=== PATIENT | male | born 1985 | race Caucasian/White ===

== ENCOUNTER 2024-11-08 09:44 | Outpatient (CLI) | payer OTHER, SELFPAY ==
--- NOTE | ~2024-11-08 | XR_ITS ---
Supine and upright views of the abdomen Clinical history: Kidney stones Findings: Bowel gas pattern is nonspecific. No evidence for obstruction or free air. Suspected 3 mm l eft kidney stone present. 5 mm calcification projects left of the L3 vertebral body, which could refl ect mid left ureteral stone. Suspected tiny right renal stone. Osseous structures are intact. Impression: Possible 5 mm mid left ureteral stone. Suspected small bilateral renal stones, as above. Reviewed, dictated and finalized at location . Impression: Possible 5 mm mid left ureteral stone. Suspected small bilateral renal stones, as above.
== END 2024-11-08 09:45 | disposition home or self-care (01) ==
PROVIDERS: PCP Nurse Practitioner; Visit Provider Urology
DX: N20.0 Calculus of kidney (principal)
CPT/HCPCS: 74018

== ENCOUNTER 2024-11-09 12:46 | Outpatient (CLI) | payer OTHER, SELFPAY ==
--- OUTSIDE RECORDS SUMMARY | 2024-11-09 12:49 | XMS_ITS | Clinical Summary ---
Author Organization [facility] Address [address] [place] [address] Care Team Providers Care Land Management Supervisor Name Role Phone Shirley Rivera DO Primary Care Provider [phone] Source Comments [facility],non-owned Affiliates and Associated Physician Practices is amultiple site organization consisting of ambulatory clinics and hospital sitesin [place], [place], [place] and [place]. This disclosure is being madepursuant to the Care Everywhere program and may not contain all information available regarding this patient. Last updated 18.[facility] [employer] Allergies No known active allergies Immunizations Immunization Administration Dates Next Due INFLUENZA VACCINE, QUADR. (F LUZONE; FLULAVAL; FLUARIX; AFLURIA QUADRIVALENT; 6MO+), 0.5 ML (IIV4) 04/27/2018 Social History Tobacco Use Types Packs/Day Years Used Date Smoking Tobacco: Never Assessed Sex and Gender Information Value Date Recorded Sex Assigned at Not on file Legal Sex Male 2:02 PM CDT Gender Identity Not on file Sexual Orientation Not on file Plan of Treatment Health Maintenance Due Date Last Done Comments LIPID TESTING 1984 HIV SCREENING 02/05/1999 HEPATITIS C SCREENING 02/01/2002 DTAP/TDAP/TD VACCINES (1 - Tdap) 02/05/2003 HEPATITIS B VACCINE (1 of 3 - 19+ 3-dose series) 02/05/2003 COVID-19 VACCINE ( - 2023-2 5 season) 2024 DEPRESSION SCREENING 07/03/2024 INFLUENZA VACCINE (Season Ended) 2025 04/27/2018, 05/22/2017, 05/29/2012 ZOSTER VACCINE (1 of 2) 02/05/2034 HIB VACCINE Aged Out No longer eligi ble based on patient's age to complete this topic HPV VACCINE Aged Out No longer eligi ble based on patient's age to complete this topic MENINGOCOCCAL (Group B) VACCINE SHARED DECISION-MAKING Aged Out No longer eligible based on patient's age to complete this topic MENINGOCOCCAL GROUPS A/C/Y/W VACCINE Aged Out No longer eligible b ased on patient's age to complete this topic PNEUMOCOCCAL VACCINE Aged Out No long er eligible based on patient's age to complete this topic Insurance [employer] Care Teams Land Management Supervisor Relationship Specialty Start Date End Date Shirley Rivera DO PCP - General Family Medicine 04/28/18
--- OUTSIDE RECORDS SUMMARY | 2024-11-09 12:49 | XMS_ITS | Encounter Summary ---
Author Organization [facility] Address [address] [place] [address] Care Team Providers Care Accounts Receivable Bookkeeper Name Role Phone Shirley Rivera DO Primary Care Provider [phone] Encounter Details Date Type Department Care Team (Late st Contact Info) Description 07/18/2024 Lab Requisition [facility] - DermPath Lab [address] [place] [id number] Brenna Ignacio DO [address] [place] [address] Social History Tobacco Use Types Packs/Day Years Used Date Smoking Tobacco: Never Assessed Sex and Gender Information Value Date Recorded Sex Assigned at Not on file Legal Sex Male 2:02 PM CDT Gender Identity Not on file Sexual Orientation Not on file documented as of this encounter Plan of Treatment Not on file documented as of this encounter Procedures Procedure Name Priority Date/Time Associated Diagnosis Comments DERMATOPATHOLOGY Routine 07/18/2024 8:35 AM SWIMMING POOL MAINTENANCE documented in this encounter Results * DERMATOPATHOLOGY (07/18/2024 8:35 AM SWIMMING POOL MAINTENANCE) Case Report Dermatopathology Report Case: [id number] Authorizing Provider: Brenna Ignacio DO Collected: 07/18/2024 08:35 AM Ordering Location: [facility] - Received: 07/18/2024 01:43 PM DermPath Lab Pathologist: Jamila Sigala MD Specimen: Skin, mid upper back 1:21 PM SWIMMING [employer]OL MAINTENANCE DERMATOPATHOLOGY LABORATORY Final Diagnosis Specimen A. SKIN, mid upper back: DERMAL SCAR RESIDUAL MELANOCYTIC PROLIFERATION NOT IDENTIFIED (L90.5) 1:21 PM SWIMMING POOL MAINTENANCE DERMATOPATHOLOGY LABORATORY Clinical History Bx proven NIKKI Proliferation Check margins/prior biopsy 1:21 PM [facility] DERMATOPATHOLOGY LABORATORY Gross Description Specimen A: Received is one formalin filled container labeled with the patient's name and designated mid upper back. The specimen consists of a non-oriented ellipse of skin measuring 29p60v7 mm. The epidermal surface is unremarkable. The margin is inked green. The 12 o'clock and 6 o'clock tips are submitted in cassette 1. The remainder of the ellipse is serially sectioned and submitted in cassette 2-3. Jar 0. 1:21 PM [facility] DERMATOPATHOLOGY LABORATORY Microscopic Description Specimen A. SKIN, mid upper back: There are fibroblasts and collagen bundles oriented parallel to the skin surface. There are elongated blood vessels, some of which are oriented perpendicular to the skin surface. No residual melanocytic proliferation is identified. 1:21 PM [facility] DERMATOPATHOLOGY LABORATORY Disclaimer An external and internal positive and negative controls are appropriate for the histochemical, immunohistochemical and immunofluorescence stain(s) in this case (if any), except where stated explicitly. The performance characteristics of the stain(s) cited in this report were developed and its performance characteristic determined by the Dermatopathology Laboratory at [facility], directed by Dr. Racheal Leiva. These tests need not be, and therefore are not, approved by the [place] Food and Drug Administration. The tests are used for clinical purposes. Billing Codes Specimen Charges Stain Charges 79185 1 1:21 PM [facility] DERMATOPATHOLOGY LABORATORY Embedded Images 1:21 PM [facility] DERMATOPATHOLOGY LABORATORY Pathology/Cytolo gy TISSUE SPECIMEN FROM SKIN / Unknown 07/18/2024 8:35 AM SWIMMING POOL MAINTENANCE 07/18/2024 1:43 PM [facility] us Brenna Ignacio DO LAB - PATHOLOGY/CYTOLOGY ORDERABLES Final Result DERMATOPATHOLOGY LABORATORY [facility] - Department of Dermatology [address], [address] [phone] documented in this encounter Visit Diagnoses Not on filedocumented in this encounter Care Teams Accounts Receivable Bookkeeper Relationship Specialty Start Date End Date Shirley Rivera DO PCP - General Family Medicine 04/28/18 documented as of this encounter
--- OUTSIDE RECORDS SUMMARY | 2024-11-09 12:49 | XMS_ITS | Clinical Summary ---
Author Organization [facility] Address [address] [place] [address] Phone Care Team Providers Care Gas Leak Inspector Helper Name Role Phone ChesterCelia APRN, METHODS ANALYST Primary Care Provider Allergies No known active allergies Medications HYDROcodone-sandeep taminophen (NORCO) 5-325 MG Tablet Take 1-2 Tabs by mouth every 4 hours as needed for Moderate or more severe pain. 10 Tab 03/05/2018 Active ibuprofen (MOTRIN) 800 MG Tablet Take 1 Tab by mouth every 8 hours. 30 Tab 03/05/2018 Active Social History Tobacco Use Types Packs/Day Years Used Date Smoking Tobacco: Never Smokeless Tobacco: Never Alcohol Use Standard Drinks/Week Comments No 0 (1 standard drink = 0.6 oz pur e alcohol) Sex and Gender Information Value Date Recorded Sex Assigned at Not on file Legal Sex Male 10:52 PM CDT Gender Identity Not on file Sexual Orientation Not on file Last Filed Vital Signs Vital Sign Reading Time Taken Comments Blood Pressure 144/87 03/05/2018 10:05 AM CDT Pulse 66 03/05/2018 10:02 AM CDT Temperature 35.8 C (96.5 F) 03/05/2018 10:02 AM CDT Respiratory Rate 16 03/05/2018 10:02 AM CDT Oxygen Saturation 97% 03/05/2018 10:02 AM CDT Inhaled Oxygen Concentration - - Weight 108.9 kg (240 lb) 03/05/2018 10:02 AM CDT Height 175.3 cm (5' 9 ) 03/05/2018 10:02 AM CDT Body Mass Index 35.44 03/05/2018 10:02 AM CDT Plan of Treatment Health Maintenance Due Date Last Done Comments Hepatitis C Virus (HCV) Screening 1985 TdaP Immunization 1984 Hepatitis B Immunization (1 of 3 - 19+ 3-dose series) 02/05/2003 Influenza Immunization (#1) 2024 SARS-COV-2 Immunization (2023- season) 2024 Respiratory Syncytial Virus (RSV) Immunization (Adult) (1 - 1-dose 75+ series) 02/05/2059 Meningococcal Immunization (ACWY) Aged Out No longer eligible based on patient's age to complete this topic Pneumococcal Immunization Combined Aged Out No longer eligible based on patient's age to complete this topic Rotavirus Immunization Aged Out No lo nger eligible based on patient's age to complete this topic Insurance Care Teams Gas Leak Inspector Helper Relationship Specialty Start Date End Date Celia Chester, LONG FILLER CIGAR ROLLER MACHINE, METHODS ANALYST [address] [place] [address] [place] [address] PCP - General Advanced Practice Nurse 04/06/22
--- OUTSIDE RECORDS SUMMARY | 2024-11-09 12:49 | XMS_ITS | Referral Summary ---
Author Organization [facility] Medical Office Building B Address [address] [place] [address] Care Team Providers Care Social Media Editor Name Role Phone Teri Escobar NP Primary Care Provider [phone] Encounters Date Type Department Care Team Description 11/07/2024 3:57 AM CDT - 11/07/2024 6:51 AM CDT Emergency [facility] Emergency Department [address] [place] [address] Ac Moss MD Kidney stone on left side (Primary Dx) Discharge Disposition: Discharge to home or self care 11/06/2024 4:24 PM CDT - 11/06/2024 7:24 PM CDT Emergency [facility] Emergency Department [address] [place] [address] Left nephrolithiasis (Primary Dx) Discharge Disposition: Discharge to home or self care 10/09/2024 Telephone [facility] [place] [address] [place] [address] Teri Escobar NP from Last 3 Months Allergies No known active allergies Medications ergocalciferol (VITAMIN D) 50,000 unit capsuleIndications :Vitamin D deficiency Take 1 capsule (50,000 Units total) by mouth once a week Active DULoxetine DR 40 mg capsule,delayed release(DR/EC)Chelita cations:major depressive disorder Take 40 mg by mouth daily 30 capsule 11 06/20/[address] (CYMBALTA) 20 mg capsuleIndications :major depressive disorder Take 1 capsule (20 mg total) by mouth nightly 30 capsule 07/26/19 25 Active ondansetron ODT (ZOFRAN-ODT) 4 mg disintegrating tablet Take 1 tablet (4 mg total) by mouth every 8 (eight) hours as needed for nausea or vomiting 20 tablet 11/07/19 25 Active tamsulosin (FLOMAX) 0.4 mg extended release capsule Take 1 capsule (0.4 mg total) by mouth daily for 5 days 5 capsule 11/07/19 25 025 Active HYDROcodone-acetam inophen (NORCO) 5-325 mg per tabletIndications: Pain Take 2 tablets by mouth every 6 (six) hours as needed for pain for up to 2 days 16 tablet 11/08/19 25 025 Active HYDROcodone-acetam inophen (NORCO) 5-325 mg per tabletIndications: Pain Take 1 tablet by mouth every 6 (six) hours as needed for pain 20 tablet 11/07/19 25 025 Discontinued Active Problems Problem Noted Date Diagnosed Date Moderate episode of recurrent major depressive d isorder 06/20/2024 Assessment & Plan (07/26/2024 8:42 AM NUMERICAL CONTROL PROGRAMMER): Moods have improved but not controlled yet. Will add 20 mg Duloxetine at night and if works will try 30 mg BID since just filled 40 mg. Will continue to monitor. Assessment & Plan (06/20/2024 10:20 AM NUMERICAL CONTROL PROGRAMMER): PHQ-9 is 10 today. Will start on Duloxetine. Will re-evaluate in 3 months. Will continue to monitor. Hypogonadism in male 04/24/2024 Assessment & Plan (04/24/2024 3:58 PM CDT): Doing testosterone injections from [facility] Encounter for medical examination to establish c are 04/21/2023 Assessment & Plan (04/21/2023 3:31 PM CDT): Healthy 38-year-old male presents to establish care with new PCP Patient recently started counseling. Patient is not on any medications He would like to have his testosterone checked Follow up 6 months Fatigue 04/21/2023 Assessment & Plan (04/21/2023 3:30 PM CDT): Testosterone level ordered We will follow with results Class 1 obesity due to exces s calories without serious comorbidity with body mass index (BMI) of 34.0 to 34.9 in adult 08[birth year]/1999 Assessment & Plan (07/26/2024 8:39 AM NUMERICAL CONTROL PROGRAMMER): Encouraged heart healthy diet and lifestyle. Advised 150 min/week of aerobic exercise. Assessment & Plan (06/20/2024 10:04 AM NUMERICAL CONTROL PROGRAMMER): Encouraged heart healthy diet and lifestyle. Advised 150 min/week of aerobic exercise. Assessment & Plan (10/22/2018 3:59 PM CDT): Obesity is unchanged. Discussed the patient's BMI. The BMI is above average; BMI management plan is completed. General weight loss/lifestyle modification strategies discussed (elicit support from others; identify saboteurs; non-food rewards, etc). Diet= low-carb Limit white bread, rice, pasta, potatoes, juice, energy drinks, coffee creamers with sugar, sugar sodas, candy, cake, cookies, ice cream. Be more careful with starchy vegetables like corn, carrots, and fruits. Stay away from processed foods, fast foods, fried foods. The cornerstone of this diet is lean grilled meats, green salads or cooked greens, fat-free milk, cottage cheese, nuts like xbqhixv-[id number], protein bars with 10-15 g of protein and 20-30 g of carbohydrate. Choose whole grain breads and pastas, brown rice, sweet potatoes, read onions--these whole grains absorb more slowly thus blood sugar does not surge so high so quickly. Avoid drinking juice, eat a piece of fruit instead. Resolved Problems Problem Noted Date Diagnosed Date Resolved Date Kidney stone 04/06/2022 04/24/2024 Assessment & Plan (04/06/2022 1:25 PM CDT): UA positive for blood in urine. Negative for UTI. Suspicion for Kidney stone and with previous history of stones, will start of Flomax and Tramadol for pain. Encouraged to increase water intake. If symptoms worsen or persist, then CT can be ordered. Acute pain of right knee 10/22/2018 Assessment & Plan (10/22/2018 4:00 PM CDT): Rest, ice, compression, and elevation. Take ibuprofen as needed for pain. Referral to Orthopedics Immunizations Immunization Administration Dates Next Due DTP 07/21/2016 Influenza, Quadrivalent, Spl it, Preservative Free, Intramuscular 04/21/2023,04/26/2019,04/27/2018 Influenza, Trivalent, Preser vative Free, Intramuscular 04/24/2024 Influenza, Trivalent, Split, Preservative Free, Intradermal 05/29/2012 Influenza, Unspecified 04/06/2022(Deferr ed: Patient Refused),04/02/2022(Deferred: Patient Refused),04/02/2021(Deferred: Patient Refused),05/22/2017 TD Preservative Free 12/01/2008 Social History Tobacco Use Types Packs/Day Years Used Date Smoking Tobacco: Never Smokeless Tobacco: Never Tobacco Cessation:Counseling Given: Not Answered Alcohol Use Standard Drinks/Week Comments Yes 0 (1 standard drink = 0.6 oz pur e alcohol) [facility] [employer] Answer Date Recorded In the past 12 months has [facility] [employer], oil, or water [employer] threatened to shut off services in your home? No 04/21/2023 Humiliation, Afraid, Rape, and Kick questionnair e Answer Date Recorded Within the last year, have y ou been afraid of your partner or ex-partner? No 04/21/2023 Within the last year, have y ou been humiliated or emotionally abused in other ways by your partner or ex-partner? No Within the last year, have y ou been kicked, hit, slapped, or otherwise physically hurt by your partner or ex-partner? No 04/21/2023 Within the last year, have y ou been raped or forced to have any kind of sexual activity by your partner or ex-partner? No 04/21/2023 Social Connection and Isolat ion Panel [NHANES] Answer Date Recorded In a typical week, how many times do you talk on the phone with family, friends, or neighbors? More than three times a week 04/21/2023 How often do you get togethe r with friends or relatives? Once a week 04/21/2023 How often do you attend chur ch or sikhism services? Never 04/21/2023 Do you belong to any clubs o r organizations such as denominational groups, unions, fraternal or athletic groups, or school groups? Yes 04/21/2023 How often do you attend meet ings of the clubs or organizations you belong to? More than 4 times per year 04/21/2023 Are you , , di vorced, , never , or living with a partner? 04/21/2023 AUDIT-C Answer Date Recorded Q1: How often do you have a drink containing alc ohol? Monthly or less 04/21/2023 Q2: How many drinks containi ng alcohol do you have on a typical day when you are drinking? 3 or 4 04/21/2023 Q3: How often do you have si x or more drinks on one occasion? Less than monthly 04/21/2023 Overall Financial Resource Strain (CARDIA) Answe r Date Recorded How hard is it for you to pa y for the very basics like food, housing, medical care, and heating? Not hard at all 04/21/2023 PHQ-2 Answer Date Recorded PHQ-2 Total Score (If total score is 3 or more points, staff should administer the PHQ-9) 1 07/26/2024 [facility] - Occupational Stress Questionnaire Answer Date Recorded Do you feel stress - tense, restless, nervous, or anxious, or unable to sleep at night because your mind is troubled all the time - these days? Rather much 04/21/2023 Exercise Vital Sign Answer Date Recorde d On average, how many days pe r week do you engage in moderate to strenuous exercise (like a brisk walk)? 2 days 04/21/2023 On average, how many minutes do you engage in exercise at this level? 60 min 04/21/2023 Hunger Vital Sign Answer Date Recorded Within the past 12 months, y ou worried that your food would run out before you got the money to buy more. Never true 04/21/20 Within the past 12 months, t he food you bought just didn't last and you didn't have money to get more. Never true 04/21/2023 PRAPARE - Transportation Answer Date Re corded In the past 12 months, has l ack of transportation kept you from medical appointments or from getting medications? No 04/03 In the past 12 months, has l ack of transportation kept you from meetings, work, or from getting things needed for daily living? No 04/21/2023 Housing Stability Vital Sign Answer Branden e Recorded In the last 12 months, was t here a time when you were not able to pay the mortgage or rent on time? No 04/21/2023 In the last 12 months, how many places have you lived? 1 04/21/2023 In the last 12 months, was t here a time when you did not have a steady place to sleep or slept in a halfway (including now)? No 04/21/2023 PHQ-9 Answer Date Recorded PHQ-9 Total Score 10 06/20/2024 Personal Safety Answer Date Recorded Have you ever been in or are you currently in a harmful physical or emotional relationship or is someone making you feel afraid or unsafe? Denies 11/07/2024 Sex and Gender Information Value Date Recorded Sex Assigned at Not on file Legal Sex Male 11:59 PM NUMERICAL CONTROL PROGRAMMER Gender Identity Not on file Sexual Orientation Not on file Last Filed Vital Signs Vital Sign Reading Time Taken Comments Blood Pressure 156/96 11/07/2024 3:50 AM CDT Pulse 72 11/07/2024 3:50 AM CDT Temperature 36.8 C (98.2 F) 11/07/2024 3:50 AM CDT Respiratory Rate 16 11/07/2024 3:50 AM CDT Oxygen Saturation 100% 11/07/2024 3:50 AM CDT Inhaled Oxygen Concentration - - Weight 102.1 kg (225 lb) 11/07/2024 3:50 AM CDT Height 175.3 cm (5' 9 ) 11/07/2024 3:50 AM CDT Body Mass Index 33.23 11/07/2024 3:50 AM CDT Plan of Treatment Not on file Procedures Procedure Name Priority Date/Time Associated Diagnosis Comments CT ABDOMEN PELVIS WO CONTRAST ED 11/06/2024 4:37 PM CDT URINALYSIS, MICROSCOPIC ONLY STAT 11/06/2024 2:22 PM CDT URINALYSIS AND REFLEX TO MICROSCOPIC AND CULTURE STAT 11/06/2024 2:22 PM CDT EGFR STAT 11/06/2024 1:25 PM CDT DIFFERENTIAL AUTO STAT 11/06/2024 1:2 5 PM CDT LIPASE STAT 11/06/2024 1:25 PM CDT COMPREHENSIVE METABOLIC PANEL STAT 11/06/2024 1:25 PM CDT CBC WITH AUTO DIFFERENTIAL STAT 11/06/2024 1:25 PM CDT HEPATITIS PANEL, ACUTE STAT 7 9:22 PM CDT from Last 3 Months or Most Recently Relevant to Health Maintenance Results * CT Abdomen Pelvis WO Contrast (11/06/2024 4:37 PM CDT) Anatomical Region Laterality Modality Body N/A Computed Tomogra phy 11/06/2024 4:56 PM CDT Narrative 11/06/2024 5:10 PM CDT EXAM DESCRIPTION: CT ABDOMEN PELVIS WO CONTRAST REASON FOR STUDY: Abdominal/flank pain, stone suspected L sided flank pain x 2 days. Hx of kidney stones TECHNIQUE: CT scan of the abdomen and pelvis performed without intravenous and without oral contrast using helical scanning technique. Reconstructed coronal and sagittal MPR images reviewed. All images stored on PACS. Automated exposure control was used as a dose optimization technique for this examination. COMPARISON: None FINDINGS: The sensitivity for detection of visceral lesions is diminished without the use of intravenous contrast. LOWER CHEST: No significant pulmonary abnormalities. No effusion. LIVER: Normal size. No identified cystic or solid masses. GALLBLADDER: No stones identified. No wall thickening or inflammatory changes. BILE DUCTS: No intrahepatic or extrahepatic ductal dilatation. SPLEEN: Mildly enlarged measuring 13.1 cm. PANCREAS: No identified cystic or solid masses. No significant calcifications. No adjacent inflammation or peripancreatic fluid collections. Pancreatic duct not dilated. ADRENALS: Normal. KIDNEYS/URINARY TRACT: There is fukx-rp-thmybyiv left-sided hydronephrosis and hydroureter caused by 6 mm obstructing calculus in the mid ureter. There are multiple sub 5 mm nonobstructing intrarenal calculi bilaterally. Urinary bladder is unremarkable. GI: Stomach is unremarkable on CT. No dilated or thick-walled loops of bowel appreciated. No sign of appendicitis. PERITONEUM: No ascites or free air. RETROPERITONEUM: No mass or adenopathy. REPRODUCTIVE: Enlarged prostate VASCULATURE: No abdominal aortic aneurysm. MUSCULOSKELETAL: No significant abnormality. OTHER: No other abnormality. IMPRESSION: Dewd-kd-andyazxe left-sided hydronephrosis and hydroureter caused by a 6 mm obstructing calculus in the mid ureter. Multiple sub 5 mm nonobstructing intrarenal calculi bilaterally. Mild splenomegaly. Enlarged prostate. THIS IS AN ELECTRONICALLY VERIFIED FINAL REPORT 11/06/2024 5:10 PM - Electronically signed by Odell Ca M.D. AM: AM Report ID: [id number] Reading Location: [id number] Procedure Note Odell Ca MD - 11/06/2024 EXAM DESCRIPTION: CT ABDOMEN PELVIS WO CONTRAST REASON FOR STUDY: Abdominal/flank pain, stone suspected L sided flank pain x 2 days. Hx of kidney stones TECHNIQUE: CT scan of the abdomen and pelvis performed without intravenousand without oral contrast using helical scanning technique. Reconstructed coronal and sagittal MPR images reviewed. All images stored on PACS.Automated exposure control was used as a dose optimization technique for this examination. COMPARISON: None FINDINGS: The sensitivity for detection of visceral lesions is diminished withoutthe use of intravenous contrast. LOWER CHEST: No significant pulmonary abnormalities. No effusion. LIVER: Normal size. No identified cystic or solid masses. GALLBLADDER: No stones identified. No wall thickening or inflammatory changes. BILE DUCTS: No intrahepatic or extrahepatic ductal dilatation. SPLEEN: Mildly enlarged measuring 13.1 cm. PANCREAS: No identified cystic or solid masses. No significant calcifications. No adjacent inflammation or peripancreatic fluidcollections. Pancreatic duct not dilated. ADRENALS: Normal. KIDNEYS/URINARY TRACT: There is pzpj-wo-cnfcsben left-sided hydronephrosisand hydroureter caused by 6 mm obstructing calculus in the mid ureter. Thereare multiple sub 5 mm nonobstructing intrarenal calculi bilaterally. Urinary bladder is unremarkable. GI: Stomach is unremarkable on CT. No dilated or thick-walled loops of bowel appreciated. No sign of appendicitis. PERITONEUM: No ascites or free air. RETROPERITONEUM: No mass or adenopathy. REPRODUCTIVE: Enlarged prostate VASCULATURE: No abdominal aortic aneurysm. MUSCULOSKELETAL: No significant abnormality. OTHER: No other abnormality. IMPRESSION: Ofts-on-uxxjtnab left-sided hydronephrosis and hydroureter caused by a 6mm obstructing calculus in the mid ureter. Multiple sub 5 mm nonobstructing intrarenal calculi bilaterally. Mild splenomegaly. Enlarged prostate. THIS IS AN ELECTRONICALLY VERIFIED FINAL REPORT 11/06/2024 5:10 PM - Electronically signed by Odell Ca M.D. AM: AM Report ID: [id number] Reading Location: [place] [address] Rigoberto Dash NP IMG CT PROCEDURES Final Res ult * (ABNORMAL) Urinalysis reflex to microscopic and culture Urine (11/06/2024 2:22 PM CDT) Color, ur Yellow Yellow Clarity, ur Turbid(A) Clear [facility] ([place]) Specific gravity, ur 1.024 1.003 - 1.030 [facility] ([place]) pH, urine 5.5 [facility] ([place]) Comment: Interpretive Data U rine pH is affected by diet, medications, systemic acid-base disturbances, and renal tubular function. pH may affect urinary stone formation. For example, urine pH below 6.0 may help reduce the tendency for calcium phosphate stones and pH greater than 6.0 may reduce the tendency for uric acid stone formation. Source: [email or web address] Current Interpretive Data was last revised on 2017 Protein, ur ql Trace Negative [facility] ([place]) Glucose, ur ql Negative Negative [facility] ([place]) Ketones, ur 1+(A) Negative [facility] ([place]) Bilirubin, ur Negative Negative [facility] ([place]) Blood, ur 3+(A) Negative [facility] ([place]) Urobilinogen, ur <2.0 <2.0 mg/dL [facility] ([place]) Nitrite, ur Negative Negative [facility] ([place]) Leukocyte esterase, ur Negative Negative [facility] ([place]) UA reflex comment Reflex to microscopic UA will be performed. [facility] ([place]) Urine 11/06/2024 2:22 PM CDT 11/06/2024 2:36 PM CDT Ananya Campa MD LAB MICROBIOLOGY - GENERAL ORDERABLES Final Result Performing Organization Address [facility] de Phone Number [facility] ([place]) 1 [facility] Department [place] [address] * (ABNORMAL) Urinalysis, microscopic only (11/06/2024 2:22 PM CDT) WBC, ur 6-10(A) 0 - 5 /HPF RBC, ur >50(A) 0 - 2 /HPF [facility] ([place]) Epithelial cells, squamous, ur 1-5 0 - 5 /HPF [facility] ([place]) Bacteria, ur Trace(A) [facility] ([place]) Yeast, ur 2+(A) [facility] ([place]) Mucous, ur Present(A) [facility] ([place]) Culture Reflex Comment Reflex conditions for urine culture (WBC >10) not met. [facility] ([place]) Urine 11/06/2024 2:22 PM CDT 11/06/2024 2:36 PM CDT Ananya Campa MD LAB URINE ORDERABLE S Final Result Performing Organization Address [facility] de Phone Number [facility] ([place]) [address] Department [place] [address] * eGFR (11/06/2024 1:25 PM CDT) Pathologist [facility] eGFR 73 >=60 mL/min/1. 73 m2 Comment: Interpretive Data Reference Interval Normal >/= 90 mL/min/1.73m2 Mildly decreased* 60 - 89 mL/min/1.73m2 Mildly to moderately decreased 45 - 59 mL/min/1.73m2 Moderately to severely decreased 30 - 44 mL/min/1.73m2 Severely decreased 15 - 29 mL/min/1.73m2 Kidney Failure < 15 mL/min/1.73m2 *Relative to young adult level Estimated glomerular filtration rate is determined by the 2020 CKD-EPI equation recommended by the National Kidney Foundation (A Unifying Approach to GFR Estimation: Recommendations of the NKF-ASK Task Force on Reassessing the Inclusion of Race in Diagnosing Kidney Disease, JASN 2020). The CKD-EPI equation should not be used for patients with unstable renal function and has not been validated in children and those over 70. Current interpretive data was last reviewed 2021. Blood 11/06/2024 1:25 PM CDT 11/06/2024 1:27 PM CDT us Ananya Campa MD LAB BLOOD ORDERABLE S Final Result [facility] 1 [facility] Department [place] [address] * (ABNORMAL) Differential, auto (11/06/2024 1:25 PM CDT) Neutrophil abs 7.26(H) 1.50 - 6.50 K/cumm Imm gran abs 0.02 0.00 - 0.10 K/cumm [facility] ([place]) Lymphocyte abs 1.36 0.80 - 3.30 K/cumm [facility] ([place]) Monocyte abs 0.32 0.20 - 0.80 K/cumm [facility] ([place]) Eosinophil abs 0.07 0.00 - 0.50 K/cumm [facility] ([place]) Basophil abs 0.03 0.00 - 0.10 K/cumm [facility] ([place]) Neutrophil pct 80.2 % [facility] ([place]) Comment: Interpretive Data Percent cell count reference ranges are not reported, since discordance with absolute values may lead to misinterpretation of CBC data. Current Interpretive Data was last revised on 2017. Imm gran pct 0.2 % [facility] ([place]) Comment: Interpretive Data Percent cell count reference ranges are not reported, since discordance with absolute values may lead to misinterpretation of CBC data. Current Interpretive Data was last revised on 2017. Lymphocyte pct 15.0 % [facility] ([place]) Comment: Interpretive Data Percent cell count reference ranges are not reported, since discordance with absolute values may lead to misinterpretation of CBC data. Current Interpretive Data was last revised on 2017. Monocyte pct 3.5 % [facility] ([place]) Comment: Interpretive Data Percent cell count reference ranges are not reported, since discordance with absolute values may lead to misinterpretation of CBC data. Current Interpretive Data was last revised on 2017. Eosinophil pct 0.8 % [facility] ([place]) Comment: Interpretive Data Percent cell count reference ranges are not reported, since discordance with absolute values may lead to misinterpretation of CBC data. Current Interpretive Data was last revised on 2017. Basophil pct 0.3 % [facility] ([place]) Comment: Interpretive Data Percent cell count reference ranges are not reported, since discordance with absolute values may lead to misinterpretation of CBC data. Current Interpretive Data was last revised on 2017. Blood 11/06/2024 1:25 PM CDT 11/06/2024 1:27 PM CDT us Ananya Campa MD LAB BLOOD ORDERABLE S Final Result [facility] ([place]) 1 [facility] Department [place] [address] * CBC with auto differential (11/06/2024 1:25 PM CDT) WBC 9.06 3.80 - 9.90 K/cumm Hgb 16.3 13.0 - 17.5 g/dL [facility] ([place]) Hct 48.8 38.9 - 50.3 % [facility] ([place]) Plt 275 150 - 400 K/cumm [facility] ([place]) MPV 11.1 9.1 - 12.3 fL [facility] ([place]) RBC 5.72 4.30 - 5.80 M/cumm [facility] ([place]) MCV 85.3 81.3 - 96.4 fL [facility] ([place]) MCH 28.5 27.1 - 33.3 pg [facility] ([place]) MCHC 33.4 32.3 - 35.7 g/dL [facility] ([place]) RDW CV 13.4 11.1 - 14.9 % [facility] ([place]) RDW SD 41.9 35.7 - 48.1 fL [facility] ([place]) NRBC abs 0.00 0.00 - 0.01 K/cumm [facility] ([place]) Blood Venous blood specimen / Unknown 11/06/2024 1:25 PM CDT 11/06/2024 1:27 PM CDT Ananya Campa MD LAB BLOOD ORDERABLE S Final Result [facility] ([place]) 1 [facility] [place] [address] * Lipase (11/06/2024 1:25 PM CDT) Lipase 19 10 - 99 Units/L Blood Venous blood specimen / Unknown 11/06/2024 1:25 PM CDT 11/06/2024 1:27 PM CDT Ananya Campa MD LAB BLOOD ORDERABLE S Final Result [facility] ([place]) 1 [facility] [place] [address] * (ABNORMAL) Comprehensive metabolic panel (11/06/2024 1:25 PM CDT) Sodium 138 135 - 145 mmol/L Potassium, pl 4.4 3.3 - 4.9 mmol/L [facility] ([place]) Chloride 100 97 - 110 mmol/L [facility]) CO2 26 22 - 32 mmol/L [facility]) Anion gap 12 2 - 15 mmol/L [facility] ([place]) BUN 18 6 - 25 mg/dL [facility] ([place]) Creatinine 1.27 0.80 - 1.30 mg/dL [facility] ([place]) Comment:Icteric sample, test results may be affected. Glucose 105 70 - 199 mg/dL [facility] ([place]) Comment: Interpretive Data Fasting glucose >/= 126 mg/dl is diagnostic for diabetes. Fasting is defined as no caloric intake for at least 8 hours. Fasting glucose between 100 mg/dl to 125 mg/dl is diagnostic of prediabetes. In a patient with classic symptoms of hyperglycemia or hyperglycemic crisis, a random glucose >/= 200 mg/dl is diagnostic for diabetes. In the absence of unequivocal hyperglycemia, results should be confirmed by repeat testing. The classification and Diagnosis of Diabetes Diabetes Care 2021; 46: S19-S40. Current interpretive data was last revised 2022. Calcium 9.3 8.5 - 10.3 mg/dL [facility] ([place]) Bilirubin, total 1.3(H) 0.1 - 1.2 mg/dL [facility] ([place]) Protein, pl 7.5 6.5 - 8.5 g/dL [facility] ([place]) Albumin 4.3 3.5 - 5.0 g/dL [facility] ([place]) Alk phos 56 40 - 130 Units/L [facility] ([place]) ALT 17 7 - 55 Units/L [facility]) AST 16 10 - 50 Units/L [facility] ([place]) Blood Venous blood specimen / Unknown 11/06/2024 1:25 PM CDT 11/06/2024 1:27 PM CDT Aannya Campa MD LAB BLOOD ORDERABLE S Final Result [facility] ([place]) 1 [facility] Department [place] [address] * Hepatitis panel, acute (03/20/2017 9:22 PM CDT) Hep A IgM Negative Negative [facility] ([place]) Hep B core IgM Negative Negative [facility] ([place]) Hep C Ab Negative Negative [facility] ([place]) HepBsAg Negative Negative [facility] ([place]) Blood specimen (specimen) 03/20/2017 9:22 PM CDT 03/21/2017 11:52 AM CDT us Rosa [facility] LAB MICROBIOLOGY - GENERAL ORD ERABLES Final Result [facility] ([place]) 1 [facility] [place] [address] from Last 3 Months or Most Recently Relevant to Health Maintenance Insurance [facility] CHOICE PLUS [facility] HMO/PPO Address: [facility] [address] [place] [address] [facility] [employer] Care Teams Social Media Editor Relationship Specialty Start Date End Date Teri Escobar NP PCP - General Family Medicine 04/21/23
--- OUTSIDE RECORDS SUMMARY | 2024-11-09 12:49 | XMS_ITS | Clinical Summary ---
Author Organization [facility] Building B Address [address] [place] [address] Care Team Providers Care Requisition Approver Name Role Phone ShawnTeri DOROTEO Primary Care Provider [phone] Allergies No known active allergies Medications ergocalciferol [...] 06/20/2024 Assessment & Plan (07/26/2024 8:42 AM POCKET CREASER): Moods have improved but not controlled yet. Will add 20 mg Duloxetine at night and if works will try 30 mg BID since just filled 40 mg. Will continue to monitor. Assessment & Plan (06/20/2024 10:20 AM POCKET CREASER): PHQ-9 is 10 today. Will start on Duloxetine. Will re-evaluate in 3 months. Will continue to monitor. Hypogonadism in male 04/24/2024 Assessment & Plan (04/24/2024 3:58 PM CDT): Doing testosterone injections from [facility] Encounter for medical examination to establish c [...] 08/03/1999 Assessment & Plan (07/26/2024 8:39 AM POCKET CREASER): Encouraged heart healthy diet and lifestyle. Advised 150 min/week of aerobic exercise. Assessment & Plan (06/20/2024 10:04 AM POCKET CREASER): Encouraged heart healthy diet and lifestyle. Advised [...] greens, fat-free milk, cottage cheese, nuts like yriiznj-veleqmu-aitezwz, protein bars with 10-15 g of protein [...] as needed for pain. Referral to Orthopedics Encounters Date Type Department Care Team Description 11/07/2024 3:57 AM CDT - 11/07/2024 6:51 AM CDT Emergency [facility] Emergency Department [address] [place] [address] Ac Moss MD Kidney stone on left side (Primary Dx) Discharge Disposition: Discharge to home or self care 11/06/2024 4:24 PM CDT - 11/06/2024 7:24 PM CDT Emergency [facility] Emergency Department [address] [place] [address] Left nephrolithiasis (Primary Dx) Discharge Disposition: Discharge to home or self care 10/09/2024 Telephone [facility] [address] [address] Teri Escobar NP from Last 3 Months Immunizations Immunization Administration Dates Next Due DTP 07/21/2016 Influenza, Quadrivalent, Spl it, Preservative Free, Intramuscular 04/21/2023,04/26/2019,04/27/2018 Influenza, Trivalent, Preser vative Free, Intramuscular 04/24/2024 Influenza, Trivalent, Split, Preservative Free, Intradermal 05/29/2012 Influenza, Unspecified 04/06/2022(Deferr ed: Patient Refused),04/02/2022(Deferred: Patient Refused),04/02/2021(Deferred: Patient Refused),05/22/2017 TD Preservative Free 12/01/2008 Surgical History Surgery Date Site/Laterality Comments VASECTOMY [id number] no complications Medical History Medical History Date Comments Hx Other Medical Obesity; Commen ts: ECS 08/13/2015 - Kidney stone Family History Medical History Relation Name Comments Other Brother 2 Alive and well; Cancer Father Other Father Alive and well; Diabetes type II Mother Diabetes -T ype II; /Diabetes mellitus type 2; Other Mother Alive and well; Diabetes type II Other 1 Family hist ory of Diabetes -Type II; Stroke Other 2 Family history of Stroke; Breast cancer Other 3 Family history of Cancer -breast; Diabetes Other 3 Other Sister 2 Alive and well; Relation Name Status Comments Brother 1 Alive Brother 2 Father Alive Mother Alive Other 1 Other 2 Other 3 Sister 1 Alive Sister 2 Social History Tobacco Use Types Packs/Day Years Used Date Smoking Tobacco: Never Smokeless Tobacco: Never Tobacco Cessation:Counseling Given: Not Answered Alcohol Use Standard Drinks/Week Comments Yes 0 (1 standard drink = 0.6 oz pur e alcohol) [facility] Utilities Answer Date Recorded In the past 12 months has [facility] 2C2P, oil, or water [employer] threatened to shut off services in your [...] 04/21/2023 How often do you attend chur or evangelical services? Never 04/21/2023 Do you belong to any clubs o r organizations such as mormonism groups, unions, fraternal or athletic groups, or [...] staff should administer the PHQ-9) 1 07/26/2024 [facility] - Occupational Stress Questionnaire Answer Date Recorded [...] money to buy more. Never true 04/21/20 23 Within the past 12 months, t he [...] place to sleep or slept in a skilled nursing (including now)? No 04/21/2023 PHQ-9 Answer Date Recorded PHQ-9 Total Score 10 06/20/2024 Personal Safety Answer Date Recorded Have you ever been in or are you currently in a harmful physical or emotional relationship or is someone making you feel afraid or unsafe? Denies 11/07/2024 Sex and Gender Information Value Date Recorded Sex Assigned at Not on file Legal Sex Male 11:59 PM POCKET CREASER Gender Identity Not on file Sexual Orientation Not on file Obstetrics History Last Filed Vital Signs Vital Sign Reading [...] 11/07/2024 3:50 AM CDT Plan of Treatment Health Maintenance Due Date Last Done Comments Hepatitis B Screening 02/05/2002 Regular Well Visit/Exam 18-64 04/24/2025 04/24/2024, 04/21/2023, 11/16/2017 Depression Screening 07/26/2025 07/26/2024, 06/20/2024, 06/20/2024, Additional history exists DTaP/Tdap/Td Vaccine (2 - Tdap) 07/21/2026 07/21/2016, 12/01/2008 Hepatitis C Screening Completed 03/20/2017 Influenza Vaccine Completed 04/24/2024, , 04/26/2019, Additional history exists HPV Vaccines Aged Out No longer eligi ble based on patient's age to complete this topic Pneumococcal vaccine <65 Aged Out No longer eligible based on patient's age to complete this topic Varicella Vaccines Discontinued Procedures Procedure Name Priority Date/Time Associated Diagnosis [...] dilated. ADRENALS: Normal. KIDNEYS/URINARY TRACT: There is wxgo-qn-kwplhpfv left-sided hydronephrosis and hydroureter caused by 6 [...] significant abnormality. OTHER: No other abnormality. IMPRESSION: Qzxg-mn-xxhqohem left-sided hydronephrosis and hydroureter caused by a 6 mm obstructing calculus in the mid ureter. Multiple sub 5 mm nonobstructing intrarenal calculi bilaterally. Mild splenomegaly. Enlarged prostate. THIS IS AN ELECTRONICALLY VERIFIED FINAL REPORT 11/06/2024 5:10 PM - Electronically signed by Odell Ca M.D. AM: AM Report ID: [id number] Reading Location: [id number] Procedure Note Odell Ca MD - 11/06/2024 [...] dilated. ADRENALS: Normal. KIDNEYS/URINARY TRACT: There is eqye-at-hcweuwfs left-sided hydronephrosisand hydroureter caused by 6 mm [...] significant abnormality. OTHER: No other abnormality. IMPRESSION: Yynj-ne-toamvulk left-sided hydronephrosis and hydroureter caused by a 6mm obstructing calculus in the mid ureter. Multiple sub 5 mm nonobstructing intrarenal calculi bilaterally. Mild splenomegaly. Enlarged prostate. THIS IS AN ELECTRONICALLY VERIFIED FINAL REPORT 11/06/2024 5:10 PM - Electronically signed by Odell Ca M.D. AM: AM Report ID: [id number] Reading Location: [id number] us Rigoberto Dash DELIVERY AGENT IMG CT PROCEDURES Final Res ult * (ABNORMAL) Urinalysis reflex to microscopic and culture Urine (11/06/2024 2:22 PM CDT) Color, ur Yellow Yellow Clarity, ur Turbid(A) Clear [facility] ([place]) Specific gravity, ur 1.024 1.003 - 1.030 [facility] ([place]) pH, urine 5.5 [facility] ([place]) Comment: Interpretive Data U rine pH is affected by diet, medications, systemic acid-base disturbances, and renal tubular function. pH may affect urinary stone formation. For example, urine pH below 6.0 may help reduce the tendency for calcium phosphate stones and pH greater than 6.0 may reduce the tendency for uric acid stone formation. Source: [employer] Current Interpretive Data was last revised on [...] LAB MICROBIOLOGY - GENERAL ORDERABLES Final Result [facility] ([place]) 1 [facility] [place] [address] * (ABNORMAL) Urinalysis, microscopic only (11/06/2024 2:22 [...] for urine culture (WBC >10) not met. [facility] ([place]) Urine 11/06/2024 2:22 PM CDT 11/06/2024 2:36 PM CDT Ananya Campa MD LAB URINE ORDERABLE S Final Result Performing Organization Address City/[facility]/ZIP Co de Phone Number [facility] ([place]) 1 [facility] [place] [address] * eGFR (11/06/2024 1:25 PM CDT) eGFR 73 >=60 mL/min/1. 73 m2 Comment: [...] LAB BLOOD ORDERABLE S Final Result [facility] ([place]) 1 [facility] Department [place] [address] * (ABNORMAL) Differential, auto (11/06/2024 1:25 PM [...] MD LAB BLOOD ORDERABLE S Final Result [facility] ([place]) 1 [facility] [place] [address] * CBC with auto differential (11/06/2024 1:25 [...] ([place]) MCHC 33.4 32.3 - 35.7 g/dL [facility] ([place]) RDW CV 13.4 11.1 - 14.9 % [facility] ([place]) RDW SD 41.9 35.7 - 48.1 fL [facility] ([place]) NRBC abs 0.00 0.00 - 0.01 K/cumm [facility] ([place]) Blood Venous blood specimen / Unknown 11/06/2024 1:25 PM CDT 11/06/2024 1:27 PM CDT Ananya Campa MD LAB BLOOD ORDERABLE S Final Result [facility] ([place]) 1 [facility] [place] [address] * Lipase (11/06/2024 1:25 PM CDT) Pathologist [facility] Lipase 19 10 - 99 Units/L Blood Venous blood specimen / Unknown 11/06/2024 1:25 PM CDT 11/06/2024 1:27 PM CDT Ananya Campa MD LAB BLOOD ORDERABLE S Final Result [facility] ([place]) 1 [facility] [place] [address] * (ABNORMAL) Comprehensive metabolic panel (11/06/2024 1:25 PM CDT) Sodium 138 135 - 145 mmol/L Potassium, pl 4.4 3.3 - 4.9 mmol/L [facility] ([place]) Chloride 100 97 - 110 mmol/L [facility] ([place]) CO2 26 22 - 32 mmol/L [facility] ([place]) Anion gap 12 2 - 15 mmol/L [facility] ([place]) BUN 18 6 - 25 mg/dL [facility] ([place]) Creatinine 1.27 0.80 - 1.30 mg/dL [facility] ([place]) Comment:Icteric sample, test results may [...] MD LAB BLOOD ORDERABLE S Final Result [facility] ([place]) 1 [facility] Department [place] [address] * Hepatitis panel, acute (03/20/2017 9:22 PM CDT) Hep A IgM Negative Negative [facility] ([place]) Hep B core IgM Negative Negative [facility] ([place]) Hep C Ab Negative Negative [facility] ([place]) HepBsAg Negative Negative [facility] ([place]) Blood specimen (specimen) 03/20/2017 9:22 PM CDT 03/21/2017 11:52 AM CDT us Rosa [facility] LAB MICROBIOLOGY - GENERAL ORD ERABLES Final Result [facility] ([place]) 1 [facility] Department [place] [address] from Last 3 Months or Most Recently Relevant to Health Maintenance Insurance [facility] CHOICE PLUS [facility] [employer] Care Teams Requisition Approver Relationship Specialty Start Date End Date Teri Escobar NP PCP - General Family Medicine 04/21/23
--- OUTSIDE RECORDS SUMMARY | 2024-11-09 12:49 | XMS_ITS | Encounter Summary ---
Author Organization [facility] Address [address] [place] [address] Care Team Providers Care Employment Trainer Name Role Phone Shirley Rivera DO Primary Care Provider [phone] Encounter Details Date Type Department Care Team (Late st Contact Info) Description 06/05/2024 Lab Requisition [facility] DermPath Lab [address] [facility] [place] [id number] Brenna Ignacio DO [address] [facility] [address] [place] [address] Social History Tobacco Use Types Packs/Day Years [...] Priority Date/Time Associated Diagnosis Comments DERMATOPATHOLOGY Routine 06/05/2024 9:55 AM COMMODITY TRADER documented in this encounter Results * DERMATOPATHOLOGY (06/05/2024 9:55 AM COMMODITY TRADER) Case Report Dermatopathology Report Case: [id number] Authorizing Provider: Brenna Ignacio DO Collected: 06/05/2024 09:55 AM Ordering Location: [facility] - Received: 06/05/2024 04:22 PM DermPath Lab Pathologist: Ava Sigala MD Specimen: Skin, mid upper back 4:51 PM COMMODITY TRADER DERMATOPATHOLOGY LABORATORY Final Diagnosis Specimen A. SKIN, mid upper back: JUNCTIONAL MELANOCYTIC PROLIFERATION; NOT PRESENT AT SAMPLED MARGIN (D48.5) (see microscopic description and comment) 4:51 PM [facility] DERMATOPATHOLOGY LABORATORY Clinical History Nevus, R/O atypia 4:51 PM [facility] DERMATOPATHOLOGY LABORATORY Gross Description Specimen A: Received is one formalin filled container labeled with the patient's name and designated mid upper back. The specimen consists of a shave biopsy measuring 7x7x1 mm. Jar 0. 4:51 PM [facility] DERMATOPATHOLOGY LABORATORY Microscopic Description Specimen A. SKIN, mid upper back: Sections show a junctional melanocytic proliferation. There is a lentiginous proliferation of melanocytes between irregular nests. Scattered melanocytes show evidence of upward migration within the epidermis. The melanocytes are large and have a mat cytoplasm. The hematoxylin and eosin stain is reviewed; immunohistochemical stains are performed to further characterize this process. MART-1/Melan-A highlights the circumscribed nature of this lesion, a well as the presence of confluent growth and upwards scatter. PRAME is not overexpressed (1+). This lesion is not present at the sampled margin of the specimen. COMMENT: Although an irritated junctional nevus was considered, the architecture and cytology of this lesion is worrisome. As this lesion appears completely excised in the sampled sections, clinicopathologic correlation is recommended as to complete removal. This case has been reviewed by Dr. Jamila Sigala who concurs with the diagnosis. 4:51 PM [facility] DERMATOPATHOLOGY LABORATORY Disclaimer An external and internal positive and negative controls are appropriate for the histochemical, immunohistochemical and immunofluorescence stain(s) in this case (if any), except where stated explicitly. The performance characteristics of the stain(s) cited in this report were developed and its performance characteristic determined by the Dermatopathology Laboratory at [facility], directed by Dr. Racheal Leiva. These tests need not be, and therefore are not, approved by the [place] Food and Drug Administration. The tests are used for clinical purposes. Billing Codes Specimen Charges Stain Charges 79735 1 [id number] 1 1 4:51 PM [facility] DERMATOPATHOLOGY LABORATORY Embedded Images 4:51 PM [facility] DERMATOPATHOLOGY LABORATORY Pathology/Cytolo gy TISSUE SPECIMEN FROM SKIN / Unknown 06/05/2024 9:55 AM COMMODITY TRADER 06/05/2024 4:22 PM COMMODITY TRADER us Brenna Ignacio DO LAB - PATHOLOGY/CYTOLOGY ORDERABLES Final Result DERMATOPATHOLOGY LABORATORY [facility] - Department of Dermatology [facility] Medicine [address] [place] [address], [address] [phone] documented in this encounter Visit Diagnoses Not on filedocumented in this encounter Care Teams Employment Trainer Relationship Specialty Start Date End Date Shirley Rivera DO PCP - General Family Medicine 04/28/18 documented as of this encounter
[2024-11-09 13:09] LABS: Add Urine Microscopic? YES; Appearance Urine Clear (Clear); Bacteria Urine None Seen /hpf; Bilirubin Urine Negative (Negative); Blood Urine 1+ (Negative); Color Urine Yellow (Yellow); Glucose Urine UA Negative (Negative); Ketones Urine Negative (Negative); Leukocyte Esterase Ur Negative LEU/UL (Negative); Nitrate Urine Negative (Negative); Non Pathogenic Casts 0-2; Protein Urine Negative (Negative); Specific Grav Ur 1.012 (1.001-1.035); Squamous Epithelial Cell Urine None Seen /hpf (Few); WBC Urine 0-5 /hpf (0-3)
[2024-11-09 13:15] LABS: Prothrombin Time 13.8 Seconds (11.1-14.7)
[2024-11-09 13:17] LABS: Partial Thromboplastin Time 31.7 Seconds (22.3-36.8)
== END 2024-11-09 12:47 | disposition home or self-care (01) ==
LOC: ANHLAB 12:47
PROVIDERS: PCP Nurse Practitioner; Visit Provider Urology
DX: Z01.818 Encounter for other preprocedural examination (principal); N20.0 Calculus of kidney
CPT/HCPCS: 36415; 81001; 85610; 85730

== ENCOUNTER 2024-11-11 00:36 | Day surgery (SDC) | payer OTHER, SELFPAY ==
[2024-11-08 15:51] VITALS: BMI 33.3
--- NOTE | 2024-11-08 15:52 | PC.NURSE ---
Report to the Outpatient Waiting Room, entrance under the green pavilion located off [facility], at time _1pm_ on date _[id number]_. Planned Procedure Time: _3pm_.? Time changes happen often and if your time is changed the preop area will call you the afternoon before. - You and your visitor will be asked to self-screen and do not enter if you have any COVID symptoms. Please call surgeon if you need to reschedule. - A mask is optional within the hospital at this time. Patients may have clear liquids (water, carbonated beverages, clear teas, apple juice) until 3 hours prior to surgery with a maximum of 20 ounces. - No food from midnight until time of surgery and no smoking, or chewing tobacco (or any form of nicotine). No chewing gum, candy or mints. Take only the following medications with a SIP of water on the morning of surgery: __Pain med if needed.___ DO NOT STOP ANY OF YOUR OTHER PRESCRIPTION MEDICATIONS PRIOR TO SURGERY EXCEPT THE FOLLOWING Hold all vitamins and supplements for 3 days per anesthesiologist. Medications to discontinue per physician Date to take last dose Please no make-up, nail hong konger, hairspray, perfume, deodorant, or body powder the day of surgery.? No jewelry (including any body piercings) or valuables the day of surgery, leave them at home.? Please take a shower or bath the night before, or the morning of, surgery with an antibacterial soap.? Wear comfortable, loose fitting clothing.? - Jewelry must be removed prior to entering the operating room.? Rings and piercings that are not removed may be cut off. - The hospital will not accept responsibility for valuables.? - Please leave all valuables, including medications, at home the day of surgery. If you are going home after surgery, a licensed funeral driver must drive you home.? - NO public transportation without another adult if you receive anesthesia. - We recommend that an adult stay with you for 24 hours following discharge. - We also recommend that you do not drive, make important decision, drink alcoholic beverages, or take any drugs that were not prescribed by your health care provider for at least 24 hours after your discharge time. Follow any additional instructions given to you from your surgeon. Telephone instructions given to __Julián__and asked if any additional questions and then verbalized understanding. Patient advised to call surgeon office or pre surgery nurse liaison [phone] if any additional questions.
[2024-11-11] VITALS (7 sets, daily range): BP systolic 114–144; BP diastolic 50–91; PULSE 59–80; RESP 15–20; TEMP 36.2–37; O2SAT 94–99; BMI 33.3
--- NOTE | ~2024-11-11 | XR_ITS ---
XR abdomen/kub 1V Ordering provider: Oleksandr Cruz MD History: . PRE ESWL FOR LEFT STONE . Comparison: November 08, 2024 FINDINGS: BOWEL: Nonobstructive bowel gas pattern. ORGANOMEGALY: None. SIGNIFICANT PATHOLOGIC CALCIFICATIONS: Stone is seen in the left pelviureteric junction measuring 5.3 mm.. OTHER: No free air is seen under the diaphragm. IMPRESSION: NO ACUTE ABDOMINAL FINDINGS. Stone in the left pelviureteric junction. No change from previous examination. Reviewed, dictated and finalized at location A.
--- OUTSIDE RECORDS SUMMARY | 2024-11-11 00:39 | XMS_ITS | Referral Summary ---
Author Organization [facility] Medical Office Building [address] Address [address] [place] [address] Care Team Providers Care Proposal Coordinator Name Role Phone Teri Escobar NP Primary Care Provider [phone] Encounters Date Type Department Care Team Description 11/07/2024 3:57 AM CDT - 11/07/2024 6:51 AM CDT [facility] Emergency Department [address] [place] [address] Ac Moss MD Kidney stone on left side (Primary Dx) Discharge Disposition: Discharge to home or self care 11/06/2024 4:24 PM CDT - 11/06/2024 7:24 PM CDT [facility] Emergency Department [address] [place] [address] Left nephrolithiasis (Primary Dx) Discharge Disposition: Discharge to home or self care 10/09/2024 Telephone [facility] [address] [place] [address] Teri Escobar NP from Last [...] for 5 days 5 capsule 11/07/19 25 Active HYDROcodone-acetam inophen (NORCO) 5-325 mg per tabletIndications: Pain Take 1 tablet by mouth every 6 (six) hours as needed for pain 20 tablet 11/07/19 25 025 Discontinued HYDROcodone-acetam inophen (NORCO) 5-325 mg per tabletIndications: Pain Take 2 tablets by mouth every 6 (six) hours as needed for pain for up to 2 days 16 tablet 11/08/19 25 025 Active Problems Problem Noted Date Diagnosed Date Moderate episode of recurrent major depressive d isorder 06/20/2024 Assessment & Plan (07/26/2024 8:42 AM BLOWER AND COMPRESSOR ASSEMBLER): Moods have improved but not controlled yet. Will add 20 mg Duloxetine at night and if works will try 30 mg BID since just filled 40 mg. Will continue to monitor. Assessment & Plan (06/20/2024 10:20 AM BLOWER AND COMPRESSOR ASSEMBLER): PHQ-9 is 10 today. Will start on Duloxetine. Will re-evaluate in 3 months. Will continue to monitor. Hypogonadism in male 04/24/2024 Assessment & Plan (04/24/2024 3:58 PM CDT): Doing testosterone injections from [facility] Encounter for medical examination to establish c [...] 08/03/1999 Assessment & Plan (07/26/2024 8:39 AM BLOWER AND COMPRESSOR ASSEMBLER): Encouraged heart healthy diet and lifestyle. Advised 150 min/week of aerobic exercise. Assessment & Plan (06/20/2024 10:04 AM BLOWER AND COMPRESSOR ASSEMBLER): Encouraged heart healthy diet and lifestyle. Advised [...] greens, fat-free milk, cottage cheese, nuts like wwgjhxw-dkluaaz-ivkibzf, protein bars with 10-15 g of protein [...] drink = 0.6 oz pur e alcohol) [facility] [employer] Answer Date Recorded In the past 12 months has [facility] [employer], gas, oil, or water [employer] threatened to shut off services in your [...] often do you attend chur ch or restorationism services? Never 04/21/2023 Do you belong to any clubs o r organizations such as yazidi groups, unions, fraternal or athletic groups, or [...] staff should administer the PHQ-9) 1 07/26/2024 [facility] - Occupational [...] place to sleep or slept in a intermediate (including now)? No 04/21/2023 PHQ-9 Answer Date Recorded PHQ-9 Total Score 10 06/20/2024 Personal Safety Answer Date Recorded Have you ever been in or are you currently in a harmful physical or emotional relationship or is someone making you feel afraid or unsafe? Denies 11/07/2024 Sex and Gender Information Value Date Recorded Sex Assigned at Not on file Legal Sex Male 11:59 PM BLOWER AND COMPRESSOR ASSEMBLER Gender Identity Not on file Sexual Orientation [...] dilated. ADRENALS: Normal. KIDNEYS/URINARY TRACT: There is ytjx-ex-svftkovv left-sided hydronephrosis and hydroureter caused by 6 [...] significant abnormality. OTHER: No other abnormality. IMPRESSION: Amua-qc-zjpwgcfs left-sided hydronephrosis and hydroureter caused by a 6 mm obstructing calculus in the mid ureter. Multiple sub 5 mm nonobstructing intrarenal calculi bilaterally. Mild splenomegaly. Enlarged prostate. THIS IS AN ELECTRONICALLY VERIFIED FINAL REPORT 11/06/2024 5:10 PM - Electronically signed by Odell Ca M.D. AM: AM Report ID: [id number] Reading Location: [id number] Procedure Note Odell Ca MD - 11/06/2024 [...] dilated. ADRENALS: Normal. KIDNEYS/URINARY TRACT: There is tuue-qf-eakhreuz left-sided hydronephrosisand hydroureter caused by 6 mm [...] significant abnormality. OTHER: No other abnormality. IMPRESSION: Kkqt-dc-odayrafe left-sided hydronephrosis and hydroureter caused by a 6mm obstructing calculus in the mid ureter. Multiple sub 5 mm nonobstructing intrarenal calculi bilaterally. Mild splenomegaly. Enlarged prostate. THIS IS AN ELECTRONICALLY VERIFIED FINAL REPORT 11/06/2024 5:10 PM - Electronically signed by Odell Ca M.D. AM: AM Report ID: [id number] Reading Location: [place] [address] Rigoberto Dash NP IMG CT PROCEDURES Final Res ult * (ABNORMAL) Urinalysis reflex to microscopic and culture Urine (11/06/2024 2:22 PM CDT) Color, ur Yellow Yellow Clarity, ur Turbid(A) Clear AIDA A ([place]) Specific gravity, ur 1.024 1.003 - 1.030 AIDA [facility] ([place]) pH, urine 5.5 A[facility] ([place]) Comment: Interpretive Data U rine pH is affected by diet, medications, systemic acid-base disturbances, and renal tubular function. pH may affect urinary stone formation. For example, urine pH below 6.0 may help reduce the tendency for calcium phosphate stones and pH greater than 6.0 may reduce the tendency for uric acid stone formation. Source: [employer] Current Interpretive Data was last revised on [...] 2:22 PM CDT 11/06/2024 2:36 PM CDT us Ananya Campa MD LAB MICROBIOLOGY - GENERAL ORDERABLES Final Result Performing Organization Address [facility] de Phone Number AIDA [facility] ([place]) [address] [facility] [employer] [place] [address] * (ABNORMAL) Urinalysis, microscopic only (11/06/2024 2:22 [...] 2:22 PM CDT 11/06/2024 2:36 PM CDT us Ananya Campa MD LAB URINE ORDERABLE S Final Result Performing Organization Address [facility] de Phone Number ANDRESCELIA [facility] ([place]) [address] [place] [address] * eGFR (11/06/2024 1:25 PM CDT) eGFR [...] MD LAB BLOOD ORDERABLE S Final Result [facility] ([place]) [address] [facility] [place] [address] * (ABNORMAL) Differential, auto (11/06/2024 1:25 PM [...] LAB BLOOD ORDERABLE S Final Result AIDA [facility] ([place]) [address] [facility] [place] [address] * CBC with auto differential (11/06/2024 1:25 [...] MD LAB BLOOD ORDERABLE S Final Result Performing Organization Address City/[facility]/ZIP Co de Phone Number [facility] [place] ([place]) [address] [facility] [place] [address] * Lipase (11/06/2024 1:25 PM CDT) Lipase 19 10 - 99 Units/L Blood Venous blood specimen / Unknown 11/06/2024 1:25 PM CDT 11/06/2024 1:27 PM CDT Ananya Campa MD LAB BLOOD ORDERABLE S Final Result [facility] ([place]) [address] [facility] [address] * (ABNORMAL) Comprehensive metabolic panel (11/06/2024 1:25 [...] S Final Result [facility] [place] ([place]) [address] [facility] [place] [address] * Hepatitis panel, acute (03/20/2017 9:22 PM CDT) Hep A IgM Negative Negative [facility] ([place]) Hep B core IgM Negative Negative [facility] ([place]) Hep C Ab Negative Negative [facility] ([place]) HepBsAg Negative Negative [facility] ([place]) Blood specimen (specimen) 03/20/2017 9:22 PM CDT 03/21/2017 11:52 AM CDT Rosa [facility] LAB MICROBIOLOGY - GENERAL ORD ERABLES Final Result [facility] [place] ([place]) [address] [facility] [place] [address] from Last 3 Months or Most Recently Relevant to Health Maintenance Insurance [facility] H[facility]/PPO Address: [facility] [address] [place] [address] [facility] [employer] Care Teams Proposal Coordinator Relationship Specialty Start Date End Date Teri Escobar NP PCP - General Family Medicine 04/21/23
--- OUTSIDE RECORDS SUMMARY | 2024-11-11 00:39 | XMS_ITS | Clinical Summary ---
Author Organization [facility] Address [address] [place] [address] Phone Care Team Providers Care Sustainment Logistics Analyst Name Role Phone ChesterCelia APRN, CRM SPECIALIST Primary Care Provider Allergies No known active [...] to complete this topic Insurance Care Teams Sustainment Logistics Analyst Relationship Specialty Start Date End Date Celia Chester, FRONT DESK ADMINISTRATOR, CRM SPECIALIST [address] [place] [address] [place] [address] PCP - General Advanced Practice Nurse 04/06/22
--- OUTSIDE RECORDS SUMMARY | 2024-11-11 00:39 | XMS_ITS | Encounter Summary ---
Author Organization [facility] Address [address] [facility] [place] [address] Care Team Providers Care Insurance Territory Manager Name Role Phone Shirley Rivera DO Primary Care Provider [phone] Encounter Details Date Type Department Care Team (Late st Contact Info) Description 06/05/2024 Lab Requisition [facility] DermPath Lab [address] [facility] [place] [id number] Brenna Ignacio DO [address] [facility] [address] [place] [address] Social History Tobacco Use Types Packs/Day Years [...] Diagnosis Comments DERMATOPATHOLOGY Routine 06/05/2024 9:55 AM STRETCHING PRESS OPERATOR documented in this encounter Results * DERMATOPATHOLOGY (06/05/2024 9:55 AM STRETCHING PRESS OPERATOR) Case Report Dermatopathology Report Case: [id number] Authorizing Provider: Brenna Ignacio DO Collected: 06/05/2024 09:55 AM Ordering Location: [facility] - Received: 06/05/2024 04:22 PM DermPath Lab Pathologist: Ava Sigala MD Specimen: Skin, mid upper back 4:51 PM STRETCHING PRESS OPERATOR DERMATOPATHOLOGY LABORATORY Final Diagnosis Specimen A. SKIN, mid upper back: JUNCTIONAL MELANOCYTIC PROLIFERATION; NOT PRESENT AT SAMPLED MARGIN (D48.5) (see microscopic description and comment) 4:51 PM [facility] DERMATOPATHOLOGY LABORATORY Clinical History Nevus, R/O atypia 4:51 PM [facility] DERMATOPATHOLOGY LABORATORY Gross Description Specimen A: Received is one formalin filled container labeled with the patient's name and designated mid upper back. The specimen consists of a shave biopsy measuring 7x7x1 mm. Jar 0. 4:51 PM [facility] DERMATOPATHOLOGY LABORATORY Microscopic Description Specimen A. SKIN, [...] who concurs with the diagnosis. 4:51 PM [facility] DERMATOPATHOLOGY LABORATORY Disclaimer An external and internal positive and negative controls are appropriate for the histochemical, immunohistochemical and immunofluorescence stain(s) in this case (if any), except where stated explicitly. The performance characteristics of the stain(s) cited in this report were developed and its performance characteristic determined by the Dermatopathology Laboratory at [facility], directed by Dr. Racheal Leiva. These tests need not be, and therefore are not, approved by the [place] Food and Drug Administration. The tests are used for clinical purposes. Billing Codes Specimen Charges Stain Charges 48960 1 07740 12335 1 1 4:51 PM [facility] DERMATOPATHOLOGY LABORATORY Embedded Images 4:51 PM [facility] DERMATOPATHOLOGY LABORATORY Pathology/Cytolo gy TISSUE SPECIMEN FROM SKIN / Unknown 06/05/2024 9:55 AM STRETCHING PRESS OPERATOR 06/05/2024 4:22 PM STRETCHING PRESS OPERATOR us Brenna Ignacio DO LAB - PATHOLOGY/CYTOLOGY ORDERABLES Final Result DERMATOPATHOLOGY LABORATORY [facility] - Department of Dermatology [facility] Medicine [address] [place] [address], [address] [phone] documented in this encounter Visit Diagnoses Not on filedocumented in this encounter Care Teams Insurance Territory Manager Relationship Specialty Start Date End Date Shirley Rivera DO PCP - General Family Medicine 04/28/18 documented as of this encounter
--- OUTSIDE RECORDS SUMMARY | 2024-11-11 00:39 | XMS_ITS | Encounter Summary ---
Author Organization [facility] Address [address] [facility] [place] [address] Care Team Providers Care Biological Scientist Name Role Phone Shirley Rivera DO Primary Care Provider [phone] Encounter Details Date Type Department Care Team (Late st Contact Info) Description 07/18/2024 Lab Requisition [facility]erm[facility] Lab [address] [facility] [place] [address] Brenna Ignacio DO [address] [facility] [address] [place] [address] Social History Tobacco Use Types Packs/Day Years [...] Diagnosis Comments DERMATOPATHOLOGY Routine 07/18/2024 8:35 AM CROP DUSTER documented in this encounter Results * DERMATOPATHOLOGY (07/18/2024 8:35 AM CROP DUSTER) Case Report Dermatopathology Report Case: [id number] Authorizing Provider: Brenna Ignacio DO Collected: 07/18/2024 08:35 AM Ordering Location: [facility] - Received: 07/18/2024 01:43 PM DermPath Lab Pathologist: Jamila Sigala MD Specimen: Skin, mid upper back 1:21 PM CROP DUSTER DERMATOPATHOLOGY LABORATORY Final Diagnosis Specimen A. SKIN, mid upper back: DERMAL SCAR RESIDUAL MELANOCYTIC PROLIFERATION NOT IDENTIFIED (L90.5) 1:21 PM CROP DUSTER DERMATOPATHOLOGY LABORATORY Clinical History Bx proven NIKKI Proliferation Check margins/prior biopsy 1:21 PM [facility] DERMATOPATHOLOGY LABORATORY Gross Description Specimen A: Received is one formalin filled container labeled with the patient's name and designated mid upper back. The specimen consists of a non-oriented ellipse of skin measuring 59d34n5 mm. The epidermal surface is unremarkable. The margin is inked green. The 12 o'clock and 6 o'clock tips are submitted in cassette 1. The remainder of the ellipse is serially sectioned and submitted in cassette 2-3. Jar 0. 1:21 PM [facility] DERMATOPATHOLOGY LABORATORY Microscopic Description Specimen A. SKIN, mid upper back: There are fibroblasts and collagen bundles oriented parallel to the skin surface. There are elongated blood vessels, some of which are oriented perpendicular to the skin surface. No residual melanocytic proliferation is identified. 1:21 PM [facility] DERMATOPATHOLOGY LABORATORY Disclaimer An external and internal positive and negative controls are appropriate for the histochemical, immunohistochemical and immunofluorescence stain(s) in this case (if any), except where stated explicitly. The performance characteristics of the stain(s) cited in this report were developed and its performance characteristic determined by the Dermatopathology Laboratory at [facility], directed by Dr. Racheal Leiva. These tests need not be, and therefore are not, approved by the [place] Food and Drug Administration. The tests are used for clinical purposes. Billing Codes Specimen Charges Stain Charges 51684 1 1:21 PM [facility] DERMATOPATHOLOGY LABORATORY Embedded Images 1:21 PM [facility] DERMATOPATHOLOGY LABORATORY Pathology/Cytolo gy TISSUE SPECIMEN FROM SKIN / Unknown 07/18/2024 8:35 AM CROP DUSTER 07/18/2024 1:43 PM [facility] us Brenna Ignacio DO LAB - PATHOLOGY/CYTOLOGY ORDERABLES Final Result DERMATOPATHOLOGY LABORATORY [facility] - Department of Dermatology [address], [address] [phone] documented in this encounter Visit Diagnoses Not on filedocumented in this encounter Care Teams Biological Scientist Relationship Specialty Start Date End Date Shirley Rivera DO PCP - General Family Medicine 04/28/18 documented as of this encounter
--- OUTSIDE RECORDS SUMMARY | 2024-11-11 00:39 | XMS_ITS | Clinical Summary ---
Author Organization [facility] Medical Office Building B Address [address] [place] [address] Care Team Providers Care Criminal Justice Department Chair Name Role Phone Teri Escobar NP Primary Care Provider [phone] Allergies No known active allergies Medications ergocalciferol [...] 06/20/2024 Assessment & Plan (07/26/2024 8:42 AM GROUP CARE WORKER): Moods have improved but not controlled yet. Will add 20 mg Duloxetine at night and if works will try 30 mg BID since just filled 40 mg. Will continue to monitor. Assessment & Plan (06/20/2024 10:20 AM GROUP CARE WORKER): PHQ-9 is 10 today. Will start on Duloxetine. Will re-evaluate in 3 months. Will continue to monitor. Hypogonadism in male 04/24/2024 Assessment & Plan (04/24/2024 3:58 PM CDT): Doing testosterone injections from [facility] Encounter for medical examination to establish c [...] 08/03/1999 Assessment & Plan (07/26/2024 8:39 AM GROUP CARE WORKER): Encouraged heart healthy diet and lifestyle. Advised 150 min/week of aerobic exercise. Assessment & Plan (06/20/2024 10:04 AM GROUP CARE WORKER): Encouraged heart healthy diet and lifestyle. Advised [...] greens, fat-free milk, cottage cheese, nuts like ayjpwkb-ajujfdx-tnkrlud, protein bars with 10-15 g of protein [...] CDT - 11/07/2024 6:51 AM CDT Emergency [facility] Emergency Department [address] [place] [address] Ac Moss MD Kidney stone on left side (Primary Dx) Discharge Disposition: Discharge to home or self care 11/06/2024 4:24 PM CDT - 11/06/2024 7:24 PM CDT Emergency [facility] Emergency Department [address] [place] [address] Left nephrolithiasis (Primary Dx) Discharge Disposition: Discharge to home or self care 10/09/2024 [facility]phone [facility] [address] [address] Teri Escobar NP from Last 3 Months Immunizations Immunization Administration Dates Next Due DTP 07/21/2016 Influenza, Quadrivalent, Spl it, Preservative Free, Intramuscular 04/21/2023,04/26/2019,04/27/2018 Influenza, Trivalent, Preser vative Free, Intramuscular 04/24/2024 Influenza, Trivalent, Split, Preservative Free, Intradermal 05/29/2012 Influenza, Unspecified 04/06/2022(Deferr ed: Patient Refused),04/02/2022(Deferred: Patient Refused),04/02/2021(Deferred: Patient Refused),05/22/2017 TD Preservative Free 12/01/2008 Surgical History Surgery Date Site/Laterality Comments VASECTOMY 83796 no complications Medical History Medical History Date [...] drink = 0.6 oz pur e alcohol) [facility] Utilities Answer Date Recorded In the past 12 months has [employer] gas, oil, or water [employer] threatened to shut off services in your [...] How often do you attend chur or anabaptism services? Never 04/21/2023 Do you belong to any clubs o r organizations such as yazidism groups, unions, fraternal or athletic groups, or [...] staff should administer the PHQ-9) 1 07/26/2024 [facility] Occupational Stress Questionnaire Answer Date Recorded [...] place to sleep or slept in a care home (including now)? No 04/21/2023 PHQ-9 Answer Date Recorded PHQ-9 Total Score 10 06/20/2024 Personal Safety Answer Date Recorded Have you ever been in or are you currently in a harmful physical or emotional relationship or is someone making you feel afraid or unsafe? Denies 11/07/2024 Sex and Gender Information Value Date Recorded Sex Assigned at Not on file Legal Sex Male 11:59 PM GROUP CARE WORKER Gender Identity Not on file Sexual Orientation [...] dilated. ADRENALS: Normal. KIDNEYS/URINARY TRACT: There is fqnm-gu-letcfeie left-sided hydronephrosis and hydroureter caused by 6 [...] significant abnormality. OTHER: No other abnormality. IMPRESSION: Pelq-gp-gayqqwqw left-sided hydronephrosis and hydroureter caused by a 6 mm obstructing calculus in the mid ureter. Multiple sub 5 mm nonobstructing intrarenal calculi bilaterally. Mild splenomegaly. Enlarged prostate. THIS IS AN ELECTRONICALLY VERIFIED FINAL REPORT 11/06/2024 5:10 PM - Electronically signed by Odell Ca M.D. AM: AM Report ID: [id number] Reading Location: [id number] Procedure Note Odell Ca MD - 11/06/2024 [...] dilated. ADRENALS: Normal. KIDNEYS/URINARY TRACT: There is molf-ag-rnvrclcv left-sided hydronephrosisand hydroureter caused by 6 mm [...] significant abnormality. OTHER: No other abnormality. IMPRESSION: Mkie-qv-nlxbmlvy left-sided hydronephrosis and hydroureter caused by a 6mm obstructing calculus in the mid ureter. Multiple sub 5 mm nonobstructing intrarenal calculi bilaterally. Mild splenomegaly. Enlarged prostate. THIS IS AN ELECTRONICALLY VERIFIED FINAL REPORT 11/06/2024 5:10 PM - Electronically signed by Odell Ca M.D. AM: AM Report ID: [id number] Reading Location: [id number] us Rigoberto Dash [employer] ESCORT DRIVER IMG CT PROCEDURES Final Res ult * [...] for uric acid stone formation. Source: [employer] Current Interpretive Data was last revised on [...] ORDERABLES Final Result [facility] ([place]) 1 [facility] [place] [address] * (ABNORMAL) Urinalysis, microscopic only (11/06/2024 2:22 PM CDT) WBC, ur 6-10(A) 0 - 5 /HPF RBC, ur >50(A) 0 - 2 /HPF [facility] ([place]) Epithelial cells, squamous, ur 1-5 0 - 5 /HPF [facility] ([place]) Bacteria, ur Trace(A) [facility] ([place]) Yeast, ur 2+(A) [facility] ([place]) Mucous, ur Present(A) [facility] ([place]) Culture Reflex Comment Reflex conditions for urine culture (WBC >10) not met. [facility] ([place]) Urine 11/06/2024 2:22 PM CDT 11/06/2024 2:36 PM CDT Ananya Campa MD LAB URINE ORDERABLE S Final Result Performing Organization Address [facility] Co de Phone Number [facility] ([place]) 1 [facility] [place] [employer] [place] [address] * eGFR (11/06/2024 1:25 PM CDT) eGFR [...] BLOOD ORDERABLE S Final Result [facility] ([place]) 1 [facility] [place] [address] * (ABNORMAL) Differential, auto (11/06/2024 1:25 PM [...] 0.03 0.00 - 0.10 K/cumm [facility] ([place]) Neutrophil pct 80.2 % [facility] [...] S Final Result [facility] ([place]) 1 [facility] [place] [address] * CBC with auto differential (11/06/2024 1:25 [...] ([place]) MCHC 33.4 32.3 - 35.7 g/dL [facility] ([place]) RDW CV 13.4 11.1 - 14.9 % [facility] RDW SD 41.9 35.7 - 48.1 fL [facility] ([place]) NRBC abs 0.00 0.00 - 0.01 K/cumm [facility] ([place]) Blood Venous blood specimen / Unknown 11/06/2024 1:25 PM CDT 11/06/2024 1:27 PM CDT Ananya Campa MD LAB BLOOD ORDERABLE S Final Result [facility] ([place] 1 [facility] [place] [employer] [place] [address] * Lipase (11/06/2024 1:25 PM CDT) Pathologist [facility] Lipase 19 10 - 99 Units/L Blood Venous blood specimen / Unknown 11/06/2024 1:25 PM CDT 11/06/2024 1:27 PM CDT Ananya Campa MD LAB BLOOD ORDERABLE S Final Result Performing Organization Address City/[facility]/ZIP Co de Phone Number [facility] ([place]) 1 [facility] [employer] [place] [address] * (ABNORMAL) Comprehensive metabolic panel (11/06/2024 1:25 PM CDT) Sodium 138 135 - 145 mmol/L Potassium, pl 4.4 3.3 - 4.9 mmol/L [facility] ([place]) Chloride 100 97 - 110 mmol/L [facility] ([place]) CO2 26 22 - 32 mmol/L [facility] ([place]) Anion gap 12 2 - 15 mmol/L [facility] ([place]) BUN 18 6 - 25 mg/dL [facility] ([place]) Creatinine 1.27 0.80 - 1.30 mg/dL [facility] ([place]) Comment:Icteric sample, test results may be affected. Glucose 105 70 - 199 mg/dL [facility] ([place]) Comment: Interpretive Data Fasting glucose >/= 126 [...] S Final Result [facility] ([place]) 1 [facility] [place] [address] * Hepatitis panel, acute (03/20/2017 9:22 PM CDT) Hep A IgM Negative Negative [facility] ([place]) Hep B core IgM Negative Negative [facility] ([place]) Hep C Ab Negative Negative [facility] ([place]) HepBsAg Negative Negative [facility] ([place]) Blood specimen (specimen) 03/20/2017 9:22 PM CDT 03/21/2017 11:52 AM CDT o[facility]CRO[facility] - GENERAL ORD ERABLES Final Result [facility] ([place]) 1 [facility] [place] [address] from Last 3 Months or Most Recently Relevant to Health Maintenance Insurance [facility] CHOICE PLUS [facility] HMO/PPO Address: [facility] [address] [place] [address] [facility] Care Teams Criminal Justice Department Chair Relationship Specialty Start Date End Date Teri Escobar NP PCP - General Family Medicine 04/21/23
--- OUTSIDE RECORDS SUMMARY | 2024-11-11 00:39 | XMS_ITS | Clinical Summary ---
Author Organization [facility] Address [address] [place] [address] Care Team Providers Care Review Coordinator Name Role Phone Shirley Rivera DO Primary Care Provider [phone] Source Comments [facility],non-owned Affiliates and Associated Physician Practices is amultiple site organization consisting of ambulatory clinics and hospital sitesin [place], [place], [place] and [place]. This disclosure is being madepursuant to the Care Everywhere program and may not contain all information available regarding this patient. Last updated 18.[facility] [employer] Allergies No known active allergies Immunizations Immunization [...] Insurance [employer] Care Teams Review Coordinator Relationship Specialty Start Date End Date Shirley Rivera DO PCP - General Family Medicine 04/28/18
[2024-11-11] MEDS: LACTATED RINGERS 1,000 ML 30 ML IV CONT (13:30)
--- NOTE | 2024-11-11 14:39 | WPDHPUPDATE1 ---
History and Physical Update Update Date/Time: 11/11/24 14:39 History and Physical has been reviewed, including an updated exam of the patient. There are NO changes in the patient's condition. Risks, benefits, and alternatives have been discussed and questions answered. Patient agrees to proceed with procedure.
--- NOTE | 2024-11-11 14:55 | WPDANESEPPF ---
Anes - Initial Pre Proc Eval Procedure: Operation Date: 11/11/24 15:00 Proposed Procedures p Left Extracorporeal Shock Wave Lithotripsy - Oleksandr Cruz MD Date/Time: 11/11/24 14:55 Surgeon: Oleksandr Cruz MD Pre Op Diagnosis: left ureteral stone Patient Data Age: 39 Gender: M Height: 1.75 m Weight: 102.3 kg Allergies Allergy/AdvReac Type Severity Reaction Status Date / Time No Known Allergies Allergy Verified 11/11/24 14:56 Home Medications ?Medication ?Instructions ?Recorded ?Confirmed ?Type hydrocodone 5 mg-acetaminophen 325 1 tablet PO Q6H PRN pain 11/08/24 11/08/24 History mg tablet tamsulosin 0.4 mg capsule 0.4 mg PO DAILY 11/08/24 11/08/24 History Patient hx anesthesia problems: none Family hx anesthesia problems: none Results Review: All pre-operative results and documents have been reviewed as part of the pre-operative evaluation. [facility] Social History Social History Smoking status: Never smoker Alcohol intake: current Living arrangements: with family Spiritual care concerns: No Anes - Eval Final PreProcedure Day of Procedure 11/11/24 14:55 Patient weight: obese Heart: regular rate and rhythm Lungs: clear to auscultation Airway: Mallampati scale class II Neurological: alert and oriented Last oral intake: >/= 8 hours Emergent: no Anesthetic plan: proceed Anesthesia type and monitoring: general LMA and standard monitoring Results Review: All pre-operative results and documents have been reviewed as part of the pre-operative evaluation. Informed Consent: The patient's anesthetic plan and its attendant risks and benefits were discussed with the patient/family/POA. Questions were solicited and answers provided to the satisfaction of the patient/family/POA.
--- NOTE | 2024-11-11 14:57 | WPDHPUPDATE1 ---
History and Physical Update Update Date/Time: 11/11/24 14:57 History and Physical has been reviewed, including an updated exam of the patient. There are NO changes in the patient's condition. Risks, benefits, and alternatives have been discussed and questions answered. Patient agrees to proceed with procedure.
[2024-11-11] MEDS: ceFAZolin 2 GM/D5W 50 ML 2 GM/50 ML BAG IVPB (15:03)
--- NOTE | 2024-11-14 12:37 | P.HP_ITS ---
History of Present Illness History of Present Illness Consent: Risks, benefits, and alternatives have been discussed and questions answered. Patient agrees to proceed with procedure. Chief complaint: left ureteral stone Narrative: Houston Gonzalez is a 39 year old male who had been in the ER recently with a painful obstructing 5 mm left mid ureteral stone. He was seen by Dr. Cam who scheduled him for left ESWL. Patient was made aware the risks including, but not limited to, need for additional procedures hematuria perinephric hematoma Review of Systems Review of Systems: All systems reviewed & are unremarkable except as noted in HPI and below PMFSH Social History Social History Smoking status: Never smoker Alcohol intake: current Living arrangements: with family Spiritual care concerns: No Meds Home Medications and Allergies Home Medications ?Medication ?Instructions ?Recorded ?Confirmed ?Type hydrocodone 5 mg-acetaminophen 325 1 tablet PO Q6H PRN pain 11/08/24 11/08/24 History mg tablet tamsulosin 0.4 mg capsule 0.4 mg PO DAILY 11/08/24 11/08/24 History hydrocodone 5 mg-acetaminophen 325 1 - 2 tablet PO Q6H PRN pain #20 11/11/24 Rx mg tablet tabs Allergies Allergy/AdvReac Type Severity Reaction Status Date / Time No Known Allergies Allergy Verified 11/11/24 15:02 Exam Const: General: no acute distress Resp: Effort & Inspection: normal respiratory effort GI: Inspection: non-distended GI Palp: No abdominal tenderness and No Guarding due to palpation present (GI) Auscultation: normal bowel sounds Assessment and Plan Assessment and plan (1) Calculus of left ureter: Code(s): N20.1 - Calculus of ureter Status: Acute Assessment and Plan: * Left ESWL
--- NOTE | 2024-11-14 12:38 | W.PM.PROC2 ---
Procedure Note - Detailed Date of Procedure 11/14/24 Pre-op Diagnosis left ureteral stone Post-op Diagnosis Same Procedure Performed Left ESWL Surgeon Oleksandr Cruz MD Anesthesia General Description of Procedure The patient was brought to the operative suite where he was placed in the supine position on the Dornier lithotripsy table. The focal point of the lithotripter was placed at a 5mm left mid-ureteral calculus. A total of 2500 shocks were delivered at a power setting of 4. There appeared to be good fragmentation of the stone. The patient tolerated the procedure well and was taken to the recovery room in good condition.
== END 2024-11-11 17:07 | disposition home or self-care (01) ==
PROVIDERS: PCP Nurse Practitioner; Visit Provider Urology
PROC: (CPT 50590; principal; 2024-11-11 15:00)
DX: N20.1 Calculus of ureter (principal)
CPT/HCPCS: 50590; 74018; J0690; J1100; J1596; J2250; J2270; J2405; J2704; J7120

== ENCOUNTER 2024-12-24 08:57 | Outpatient (CLI) | payer OTHER, SELFPAY ==
--- NOTE | ~2024-12-24 | XR_ITS ---
XR abdomen/kub 1V Ordering provider: Oleksandr Cruz MD History: . Bilateral kidney stones . Comparison: None. FINDINGS: BOWEL: Nonobstructive bowel gas pattern. ORGANOMEGALY: None. SIGNIFICANT PATHOLOGIC CALCIFICATIONS: Stones in the left kidney. Faint calcification in the right ki dney also not excluded. OTHER: No free air is seen under the diaphragm. IMPRESSION: NO ACUTE ABDOMINAL FINDINGS. Left kidney stones. Possible right kidney stones. Reviewed, dictated and finalized at location A.
== END 2024-12-24 08:58 | disposition home or self-care (01) ==
PROVIDERS: PCP Nurse Practitioner; Visit Provider Urology
DX: N20.0 Calculus of kidney (principal)
CPT/HCPCS: 74018